=== PATIENT | male | born 1950 | race Caucasian/White ===

== ENCOUNTER 2016-09-10 16:25 | Emergency (ER) | payer BC ==
[2016-09-10] MEDS ORDERED: Albuterol/Ipratropium 3.0-0.5 MG/3 ML Neb Soln NEB ONE ×3 (16:41→17:18)
[2016-09-10] MEDS ORDERED: Doxycycline 100 MG Cap PO ONE (16:41)
[2016-09-10] MEDS ORDERED: methylPREDNISolone Sodium Succinate 125 MG/2 ML SDV IVPUSH ONE (16:41)
--- NOTE | 2016-09-10 17:21 | EDM.PDOC ---
ED HPI GENERAL MEDICAL PROBLEM - General Chief Complaint: Respiratory Problem Stated Complaint: SOB Time Seen by Provider: 09/10/16 16:39 Source of Information: Reports: Patient History Limitations: Reports: No Limitations - History of Present Illness INITIAL COMMENTS - FREE TEXT/NARRATIVE: The patient is a 66-year-old male with a chief complaint of cough and shortness of breath. The patient has a history of COPD. He is on oxygen at baseline but only at night. For the past couple of days he's had increased cough, sputum production, and shortness of breath. He's been using his albuterol nebulizer with no relief. Feels very short of breath and wheezy. No chest pain. No fever. No vomiting. No additional complaint. Not currently on steroids but states he's required frequent use of steroid medication this year. - Related Data Allergies Allergy/AdvReac Type Severity Reaction Status Date / Time No Known Allergies Allergy Verified 09/10/16 16:42 Home Meds: Home Meds Levalbuterol Tartrate [Xopenex HFA] 2 puff INH Q6H PRN 12/28/14 [History] Albuterol Sulfate 2.5 mg Q4HR PRN 09/10/16 [History] Doxycycline [Vibramycin] 100 mg PO BID #20 cap 09/10/16 [Rx] Roflumilast [Daliresp] 1 tab DAILY 09/10/16 [History] Stiolto Respimat Inhal [place] 2 puff DAILY 09/10/16 [History] predniSONE [Prednisone] 60 mg PO DAILY 5 Days 09/10/16 [Rx] Past Medical History Respiratory History: Reports: COPD Social & Family History - Tobacco Use Smoking Status *Q: Former Smoker Used Tobacco, but Quit: No - Recreational Drug Use Recreational Drug Use: No ED ROS GENERAL - Review of Systems Review Of Systems: See Below Constitutional: Reports: Malaise, Weakness, Fatigue. Denies: Fever HEENT: Reports: No Symptoms Respiratory: Reports: Shortness of Breath, Wheezing, Cough Cardiovascular: Reports: No Symptoms Endocrine: Reports: No Symptoms GI/Abdominal: Reports: No Symptoms Musculoskeletal: Reports: No Symptoms ED EXAM, GENERAL - Physical Exam Exam: See Below Exam Limited By: No Limitations General Appearance: Alert, Mild Distress Eye Exam: Bilateral Eye: Normal Inspection Ears: Normal External Exam Nose: Normal Inspection Throat/Mouth: Normal Inspection, Normal Voice, No Airway Compromise Head: Atraumatic, Normocephalic Neck: Normal Inspection, Supple, Non-Tender, Full Range of Motion Respiratory/Chest: Wheezing, Accessory Muscle Use, Prolonged Expiration, Other ( diffuse expiratory wheeze) Cardiovascular: Normal Peripheral Pulses, Regular Rate, Rhythm, No Edema GI/Abdominal: Soft, Non-Tender, No Distention. No: Rebound Back Exam: Normal Inspection Extremities: Normal Inspection Neurological: Alert, Oriented, Normal Cognition, No Motor/Sensory Deficits Psychiatric: Normal Affect, Normal Mood Skin Exam: Warm, Dry, Intact, Normal Color, No Rash Course - Vital Signs Last Recorded V/S: Last Vital Signs Temp 35.6 C 09/10/16 16:42 Pulse 98 09/10/16 18:50 Resp 19 09/10/16 18:50 BP 113/80 09/10/16 18:50 Pulse Ox 89 L 09/10/16 18:50 - Orders/Labs/Meds Orders: Active Orders 24 hr Category Date Time Status EKG 12 Lead [EKG Documentation Completion] [RC] STAT Care 09/10/16 16:41 Active RT Aerosol Therapy [RC] ASDIRECTED Care 09/10/16 16:41 Active Labs: Laboratory Tests 09/10/16 09/10/16 Range/Units 16:45 16:45 WBC 10.25 H (4.23-9.07) K/mm3 RBC 4.85 (4.63-6.08) M/mm3 Hgb 15.3 (13.7-17.5) gm/L Hct 45.1 (40.1-51.0) % MCV 93.0 H (79.0-92.2) fl MCH 31.5 (25.7-32.2) pg MCHC 33.9 (32.2-35.5) g/dl RDW Std Deviation 46.6 H (35.1-43.9) fL Plt Count 331 (163-337) K/mm3 MPV 9.8 (9.4-12.3) fl Neut % (Auto) 60.4 (34.0-67.9) % Lymph % (Auto) 21.7 L (21.8-53.1) % [place] % (Auto) 10.6 (5.3-12.2) % Eos % (Auto) 6.4 (0.8-7.0) Baso % (Auto) 0.6 (0.1-1.2) % Neut # (Auto) 6.19 H (1.78-5.38) K/mm3 Lymph # (Auto) 2.22 (1.32-3.57) K/mm3 [place] # (Auto) 1.09 H (0.30-0.82) K/mm3 Eos # (Auto) 0.66 H (0.04-0.54) K/mm3 Baso # (Auto) 0.06 (0.01-0.08) K/mm3 Sodium 141 (136-145) mEq/L Potassium 3.4 L (3.5-5.1) mEq/L Chloride 103 (98-107) mEq/L Carbon Dioxide 27 (21-32) mEq/L Anion Gap 14.4 (5-15) BUN 19 H (7-18) mg/dL Creatinine 1.1 (0.7-1.3) mg/dL Est Cr Clr Drug Dosing 76.67 mL/min Estimated GFR (MDRD) > 60 (>60) mL/min BUN/Creatinine Ratio 17.3 (14-18) Glucose 114 (80-115) mg/dL Calcium 9.2 (8.5-10.1) mg/dL Total Bilirubin 0.7 (0.2-1.0) mg/dL AST 23 (15-37) U/L ALT 33 (16-63) U/L Alkaline Phosphatase 107 (46-116) U/L Troponin I < 0.017 (0.00-0.056) ng/mL Total Protein 8.0 (6.4-8.2) g/dl Albumin 4.1 (3.4-5.0) g/dl Globulin 3.9 gm/dL Albumin/Globulin Ratio 1.1 (1-2) Meds: Medications Discontinued Medications Generic Name Dose Route Start Last Admin Trade Name Freq PRN Reason Stop Dose Admin Albuterol/Ipratropium 3 ml 09/10/16 16:41 09/10/16 16:48 Duoneb 3.0-0.5 Mg/3 Ml NEB 09/10/16 16:42 3 ml ONETIME ONE Administration Albuterol/Ipratropium 3 ml 09/10/16 16:41 09/10/16 16:49 Duoneb 3.0-0.5 Mg/3 Ml NEB 09/10/16 16:42 3 ml ONETIME ONE Administration Albuterol/Ipratropium 3 ml 09/10/16 17:18 09/10/16 17:26 Duoneb 3.0-0.5 Mg/3 Ml NEB 09/10/16 17:19 3 ml ONETIME ONE Administration Doxycycline Hyclate 100 mg 09/10/16 16:41 09/10/16 17:02 Vibramycin PO 09/10/16 16:42 100 mg ONETIME ONE Administration Methylprednisolone Sodium Succinate 125 mg 09/10/16 16:41 09/10/16 17:03 Solu-Medrol IVPUSH 09/10/16 16:42 125 mg ONETIME ONE Administration - Re-Assessments/Exams Free Text/Narrative Re-Assessment/Exam: 09/10/16 18:10 EKG shows a right bundle branch block, no significant ST abnormality. Chest x- ray shows mild hyperinflation, normal cardiac silhouette, no infiltrate or pneumothorax. Patient given [id number] nebs and states breathing is much improved. Also given steroid medication. Given doxycycline for COPD exacerbation with bronchitis. 09/10/16 18:32 Feels much better, no SOB, no wheezes, wants to go home. Advised him to use his oxygen continuously until he follows up with his primary doctor. His oxygen saturations here are in the 90s on 1 L nasal cannula. Discussed return precautions. 09/11/16 12:36 Departure - Departure Time of Disposition: 18:32 Disposition: Home, Self-Care 01 Clinical Impression: COPD exacerbation - Discharge Information Prescriptions: Doxycycline [Vibramycin] 100 mg PO BID #20 cap predniSONE [Prednisone] 60 mg PO DAILY 5 Days Instructions: Chronic Obstructive Pulmonary Disease Exacerbation, [id number] Referrals: Anamaria Seaman NP [Primary Care Provider] - Forms: ED Department Discharge - My Orders Last 24 Hours: My Active Orders 09/10/16 16:41 EKG 12 Lead [EKG Documentation Completion] [RC] STAT RT Aerosol Therapy [RC] ASDIRECTED - Assessment/Plan Last 24 Hours: My Active Orders 09/10/16 16:41 EKG 12 Lead [EKG Documentation Completion] [RC] STAT RT Aerosol Therapy [RC] ASDIRECTED
[2016-09-10 19:04] VITALS: BP 113/80
--- NOTE | 2016-09-11 07:16 | CR ---
Chest: Portable view of the chest was obtained. Comparison: Previous chest x-ray of 11/25/14. Heart size is normal. Mild tortuosity of the thoracic aorta is seen. Lungs are clear with no acute infiltrates. Lungs are hyperinflated compatible with emphysematous change. Bony structures are grossly intact. Impression: 1. Emphysematous change. Nothing acute is appreciated. No significant change is seen from prior study. Diagnostic code #2
== END 2016-09-10 18:55 | disposition home or self-care (01) ==
LOC: JD.ED 16:25
DX: J44.1 Chronic obstructive pulmonary disease with (acute) exacerbation (principal); Z87.891 Personal history of nicotine dependence; Z79.899 Other long term (current) drug therapy
CPT/HCPCS: 36415; 71010; 80053; 84484; 85025; 93005; 94640; 94664; 96374; 99285; A9270; J2930; 99284

== ENCOUNTER 2016-10-02 05:05 | Inpatient (IN) | payer BC ==
--- NOTE | 2016-10-02 05:08 | EDM.PDOC ---
ED HPI GENERAL MEDICAL PROBLEM - General Chief Complaint: Respiratory Problem Stated Complaint: [facility] Time Seen by Provider: 10/02/16 05:05 Source of Information: Reports: Patient, EMS, RN Notes Reviewed History Limitations: Reports: No Limitations - History of Present Illness INITIAL COMMENTS - FREE TEXT/NARRATIVE: The patient states that he woke around 01:00 this morning with shortness of breath and wheezing. He took 4 puffs of his albuterol inhaler, which did nothing. He then took 2 DuoNeb's, which also did nothing. He called EMS, who found his oxygen saturation to be 89% on room air. They gave him an albuterol neb en route, which increased his oxygen saturation to 96%, while on the neb. Here in the ED, his oxygen saturation is about 90% on room air. The patient has a history of COPD and wears supplemental oxygen 2 L per nasal cannula, only at night. He denies recent fever and cough. The patient's PCP is Anamaria Seaman. His [employer] Admin is Dr. Jackson. - Related Data Allergies Allergy/AdvReac Type Severity Reaction Status Date / Time No Known Allergies Allergy Verified 10/02/16 05:11 Home Meds: Home Meds Levalbuterol Tartrate [Xopenex HFA] 2 puff INH Q6H PRN 12/28/14 [History] Albuterol Sulfate 2.5 mg Q4HR PRN 09/10/16 [History] Doxycycline [Vibramycin] 100 mg PO BID #20 cap 09/10/16 [Rx] Roflumilast [Daliresp] 1 tab DAILY 09/10/16 [History] Stiolto Respimat Inhal [place] 2 puff DAILY 09/10/16 [History] Past Medical History Respiratory History: Reports: COPD Social & Family History - Tobacco Use Smoking Status *Q: Former Smoker Years of Tobacco use: 20 Packs/Tins Daily: 1.5 Month Tobacco Last Used: 2001 - Alcohol Use Alcohol Use History: No - Recreational Drug Use Recreational Drug Use: No - Living Situation & Occupation Living situation: Reports: , Alone 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) ED ROS GENERAL - Review of Systems Review Of Systems: See Below Constitutional: Reports: No Symptoms HEENT: Reports: No Symptoms Respiratory: Reports: No Symptoms Cardiovascular: Reports: No Symptoms Endocrine: Reports: No Symptoms GI/Abdominal: Reports: No Symptoms : Reports: No Symptoms Musculoskeletal: Reports: No Symptoms Skin: Reports: No Symptoms Neurological: Reports: No Symptoms Psychiatric: Reports: No Symptoms Hematologic/Lymphatic: Reports: No Symptoms Immunologic: Reports: No Symptoms ED EXAM, GENERAL - Physical Exam Exam: See Below Exam Limited By: No Limitations General Appearance: Alert, WD/WN, Mild Distress (appears dyspneic) Eye Exam: Bilateral Eye: Normal Inspection Ears: Normal External Exam, Hearing Grossly Normal Nose: Normal Inspection, No Blood Throat/Mouth: Normal Inspection, Normal Lips, Normal Voice, No Airway Compromise Head: Atraumatic, Normocephalic Neck: Normal Inspection, Full Range of Motion Respiratory/Chest: Normal Breath Sounds, No Accessory Muscle Use, Chest Non- Tender, Decreased Breath Sounds (mild), Wheezing (mild, scattered). No: Crackles, Rhonchi, Accessory Muscle Use, Prolonged Expiration Cardiovascular: Normal Peripheral Pulses, Regular Rate, Rhythm, No Gallop, No JVD, No Murmur, No Rub, Tachycardia Peripheral Pulses: 4+: Radial (L), Radial (R) GI/Abdominal: Normal Bowel Sounds, Soft, Non-Tender, No Organomegaly, No Distention, No Abnormal Bruit, No Mass (Male) Exam: Deferred Rectal (Males) Exam: Deferred Back Exam: Normal Inspection, Full Range of Motion, NT Extremities: Normal Inspection, Normal Range of Motion, No Pedal Edema, Normal Capillary Refill Neurological: Alert, Oriented, Normal Cognition, No Motor/Sensory Deficits Psychiatric: Normal Affect Skin Exam: Warm, Dry, Intact, Normal Color, No Rash Lymphatic: No Adenopathy EKG INTERPRETATION EKG Date: 10/02/16 Time: 05:16 Rhythm: Other (Sinus tachycardia) Rate (Beats/Min): 110 Flom: Normal P-Wave: Present QRS: RBBB ST-T: Normal QT: Normal Comparison: No Change (09/10/2016) Course - Vital Signs Last Recorded V/S: Last Vital Signs Temp 36.7 C 10/02/16 05:06 Pulse 100 10/02/16 08:13 Resp 29 H 10/02/16 08:13 BP 127/97 H 10/02/16 08:13 Pulse Ox 94 L 10/02/16 08:13 - Orders/Labs/Meds Orders: Active Orders 24 hr Category Date Time Status EKG Documentation Completion [RC] STAT Care 10/02/16 05:08 Active CULTURE BLOOD [BC] Stat Lab 10/02/16 05:40 Received CULTURE BLOOD [BC] Stat Lab 10/02/16 05:50 Received Blood Culture x2 Reflex Set [OM.PC] Stat Oth 10/02/16 05:08 Ordered Labs: Laboratory Tests 10/02/16 10/02/16 10/02/16 Range/Units 05:08 05:10 05:10 WBC 10.97 H (4.23-9.07) K/mm3 RBC 4.61 L (4.63-6.08) M/mm3 Hgb 14.7 (13.7-17.5) gm/L Hct 42.5 (40.1-51.0) % MCV 92.2 (79.0-92.2) fl MCH 31.9 (25.7-32.2) pg MCHC 34.6 (32.2-35.5) g/dl RDW Std Deviation 44.9 H (35.1-43.9) fL Plt Count 261 (163-337) K/mm3 MPV 9.7 (9.4-12.3) fl Neutrophils % (Manual) 84 H (40-60) % Band Neutrophils % 0 (0-10) % Lymphocytes % (Manual) 15 L (20-40) % Atypical Lymphs % 0 % Monocytes % (Manual) 1 L (2-10) % Eosinophils % (Manual) 0 L (0.8-7.0) % Basophils % (Manual) 0 L (0.2-1.2) Platelet Estimate Adequate RBC Morph Comment Normal PT 9.3 (8.0-13.0) SECONDS INR 0.86 APTT 27 (22-36) SECONDS D-Dimer, Quantitative 0.23 (0.19-0.59) mg/L Puncture Site Rt radial ABG pH 7.41 (7.35-7.45) ABG pCO2 41.9 (35.0-45.0) mmHg ABG pO2 59.0 L (80.0-100.0) mmHg ABG HCO3 25.7 (22.0-26.0) meq/L A-a Gradient 23 mmHg O2 Delivery Device Room air FiO2 0.00 L (21.00-100.00) % Sodium (136-145) mEq/L Potassium (3.5-5.1) mEq/L Chloride (98-107) mEq/L Carbon Dioxide (21-32) mEq/L Anion Gap (5-15) BUN (7-18) mg/dL Creatinine (0.7-1.3) mg/dL Est Cr Clr Drug Dosing Estimated GFR (MDRD) (>60) mL/min BUN/Creatinine Ratio (14-18) Glucose (80-115) mg/dL Lactic Acid (0.4-2.0) mmol/L Calcium (8.5-10.1) mg/dL Total Bilirubin (0.2-1.0) mg/dL AST (15-37) U/L ALT (16-63) U/L Alkaline Phosphatase (46-116) U/L Troponin I (0.00-0.056) ng/mL B-Natriuretic Peptide (0-100) pg/mL Total Protein (6.4-8.2) g/dl Albumin (3.4-5.0) g/dl Globulin gm/dL Albumin/Globulin Ratio (1-2) 10/02/16 10/02/16 10/02/16 Range/Units 05:10 05:10 05:40 WBC (4.23-9.07) K/mm3 RBC (4.63-6.08) M/mm3 Hgb (13.7-17.5) gm/L Hct (40.1-51.0) % MCV (79.0-92.2) fl MCH (25.7-32.2) pg MCHC (32.2-35.5) g/dl RDW Std Deviation (35.1-43.9) fL Plt Count (163-337) K/mm3 MPV (9.4-12.3) fl Neutrophils % (Manual) (40-60) % Band Neutrophils % (0-10) % Lymphocytes % (Manual) (20-40) % Atypical Lymphs % % Monocytes % (Manual) (2-10) % Eosinophils % (Manual) (0.8-7.0) % Basophils % (Manual) (0.2-1.2) Platelet Estimate RBC Morph Comment PT (8.0-13.0) SECONDS INR APTT (22-36) SECONDS D-Dimer, Quantitative (0.19-0.59) mg/L Puncture Site ABG pH (7.35-7.45) ABG pCO2 (35.0-45.0) mmHg ABG pO2 (80.0-100.0) mmHg ABG HCO3 (22.0-26.0) meq/L A-a Gradient mmHg O2 Delivery Device FiO2 (21.00-100.00) % Sodium 140 (136-145) mEq/L Potassium 3.6 (3.5-5.1) mEq/L Chloride 103 (98-107) mEq/L Carbon Dioxide 29 (21-32) mEq/L Anion Gap 11.6 (5-15) BUN 15 (7-18) mg/dL Creatinine 1.1 (0.7-1.3) mg/dL Est Cr Clr Drug Dosing TNP Estimated GFR (MDRD) > 60 (>60) mL/min BUN/Creatinine Ratio 13.6 L (14-18) Glucose 129 H (80-115) mg/dL Lactic Acid 1.5 (0.4-2.0) mmol/L Calcium 8.4 L (8.5-10.1) mg/dL Total Bilirubin 0.3 (0.2-1.0) mg/dL AST 19 (15-37) U/L ALT 34 (16-63) U/L Alkaline Phosphatase 89 (46-116) U/L Troponin I < 0.017 (0.00-0.056) ng/mL B-Natriuretic Peptide < 15 (0-100) pg/mL Total Protein 7.4 (6.4-8.2) g/dl Albumin 3.7 (3.4-5.0) g/dl Globulin 3.7 gm/dL Albumin/Globulin Ratio 1.0 (1-2) Meds: Medications Discontinued Medications Generic Name Dose Route Start Last Admin Trade Name Freq PRN Reason Stop Dose Admin Ibuprofen 600 mg 10/02/16 06:42 10/02/16 06:51 Motrin PO 10/02/16 06:43 600 mg ONETIME ONE Administration - Re-Assessments/Exams Free Text/Narrative Re-Assessment/Exam: 10/02/16 05:18 The etiology of the patient's symptoms is not entirely clear. At first blush, it appears that he is having a COPD exacerbation, however, on auscultation of his lungs, he has fairly good overall air movement, with only minimal wheezing. He has not been coughing. He did not improve despite 4 puffs of his albuterol inhaler and 2 DuoNeb treatments. Before giving him additional albuterol or beginning steroids, I will wait for lab results. 10/02/16 05:32 The patient's ABG demonstrates low PO2, but a normal acid-base status. 10/02/16 06:00 Two-view chest radiograph reviewed. Cardiac silhouette is within normal limits. No pulmonary vascular congestion. No pleural effusions. No focal infiltrate. No pneumothorax. Hyperinflation and bilateral diaphragmatic flattening noted, consistent with COPD. Formal read per the Radiologist pending. 10/02/16 07:57 Test results discussed with the patient. Today's workup is grossly unremarkable , and does not explain the cause of the patient's symptoms. While he complains of dyspnea, he is moving air fairly well, with minimal wheezing. His ABG does not show hypercapnia, his chest radiograph does not show an infiltrate, and his D-dimer is low. The patient reiterated that he had NO benefit whatsoever from the 4 albuterol MDI inhalations, 2 DuoNeb's, or albuterol neb that he received. All of these speak against a COPD exacerbation, therefore I am reluctant to give him more albuterol or start him on steroids. His oxygen saturation is hovering around 91% on room air, but he still appears to be fairly dyspneic. I'm reluctant to discharge him home, and he is agreeable to being admitted. 10/02/16 08:[address] Hall at 08:19. He accepts the patient for admission. Departure - Departure Time of Disposition: 08:24 Disposition: Admitted As Inpatient 68 Condition: Fair Clinical Impression: Acute dyspnea, Hypoxemia - Discharge Information - My Orders Last 24 Hours: My Active Orders 10/02/16 05:08 EKG Documentation Completion [RC] STAT Blood Culture x2 Reflex Set [OM.PC] Stat 10/02/16 05:40 CULTURE BLOOD [BC] Stat 10/02/16 05:50 CULTURE BLOOD [BC] Stat - Assessment/Plan Last 24 Hours: My Active Orders 10/02/16 05:08 EKG Documentation Completion [RC] STAT Blood Culture x2 Reflex Set [OM.PC] Stat 10/02/16 05:40 CULTURE BLOOD [BC] Stat 10/02/16 05:50 CULTURE BLOOD [BC] Stat
[2016-10-02] MEDS ORDERED: Ibuprofen 600 MG Tab PO ONE (06:42)
--- NOTE | 2016-10-02 07:39 | CR ---
Chest: Two views of the chest were obtained. Comparison: Previous chest x-ray of 09/10/16. Heart size is normal. Tortuous thoracic aorta is seen. Lungs are hyperinflated compatible with emphysematous change. Lung markings are mildly increased within the left base believed to be chronic. I do not see any acute infiltrates at this time. Bony structures are within normal limits for the patient's age. Impression: 1. Emphysematous change. Other incidental findings. Nothing acute is appreciated. Diagnostic code #2
[2016-10-02] MEDS ORDERED: Morphine 2 MG/ML Syringe IVPUSH ONE (09:21)
[2016-10-02] MEDS ORDERED: methylPREDNISolone Sodium Succinate 125 MG/2 ML SDV IVPUSH ONE (09:22)
[2016-10-02] MEDS ORDERED: Magnesium Sulfate/Water 2 GM in Premix Bag 1 BAG IV ONE (09:22)
[2016-10-02] MEDS ORDERED: Morphine 2 MG/ML Syringe IVPUSH PRN (10:53)
--- NOTE | 2016-10-02 11:03 | PCM.HP ---
H&P History of Present Illness - General Date of Service: 10/02/16 Admit Problem/Dx: Admission Diagnosis/Problem Admission Diagnosis/Problem Dyspnea Source of Information: Patient, Old Records, Provider, RN Notes Reviewed, Significant Other History Limitations: Reports: Respiratory Distress - History of Present Illness Initial Comments - Free Text/Narative: This is a 66-year-old white male with past medical history of advanced COPD who presents to the emergency department with complaints of worsening shortness of breath and wheezing. He chief of complaint woke him up at about 1:00 this morning. He took initial breathing treatment with albuterol and DuoNeb but without much relief. Patient called EMS for further help, he was found to be saturating at 89% on room air. His O2 sat improved to 96% after initial treatment with albuterol nebulizer. On presentation to the emergency department his O2 sat was about 90% on room air. Patient denies any other symptoms. His initial workup in the emergency department shows a CBC significant for WBC of 10.97, RBC of 4.61, and neutrophils of 84%. His ABG shows pH of 7.41, PCO2 of 41.9, PO2 of 59, and bicarbonate of 29.7 on room air. His chemistry is significant for glucose of 129 and calcium of 8.4. His troponin is less than 0.017 and BNP is less than 15. Chest x-ray shows hyperinflated lungs. Patient is being admitted for acute respiratory distress and COPD exacerbation. He is full code. - Related Data Allergies/Adverse Reactions: Allergies Allergy/AdvReac Type Severity Reaction Status Date / Time No Known Allergies Allergy Verified 10/02/16 14:24 Home Medications: Home Meds Levalbuterol Tartrate [Xopenex HFA] 2 puff INH Q6H PRN 12/28/14 [History] Albuterol Sulfate 2.5 mg Q4HR PRN 09/10/16 [History] Roflumilast [Daliresp] 1 tab DAILY 09/10/16 [History] Stiolto Respimat Inhal [place] 2 puff DAILY 09/10/16 [History] Past Medical History Respiratory History: Reports: COPD, SOB - Past Surgical History Respiratory Surgical History: Reports: None Social & Family History - Tobacco Use Smoking Status *Q: Former Smoker Years of Tobacco use: 20 Packs/Tins Daily: 1.5 Used Tobacco, but Quit: Yes Month Tobacco Last Used: QUIT 15 YRS AGO Second Hand Smoke Exposure: No - Caffeine Use Caffeine Use: Reports: Coffee, Soda - Recreational Drug Use Recreational Drug Use: No - Living Situation & Occupation Living situation: Reports: , Alone 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 Denies: Pleuritic Chest Pain Cardiovascular: Reports: Dyspnea on Exertion. Denies: Chest Pain, Palpitations Gastrointestinal: Denies: Abdominal Pain, Nausea, Vomiting Genitourinary: Reports: No Symptoms Musculoskeletal: Reports: No Symptoms Skin: Denies: Cyanosis Psychiatric: Denies: Depression Exam - Exam Exam: See Below - Vital Signs Vital Signs: Last Vital Signs Temp 36.9 C 10/02/16 10:18 Pulse 103 H 10/02/16 09:00 Resp 24 H 10/02/16 10:18 BP 133/98 H 10/02/16 10:18 Pulse Ox 94 L 10/02/16 10:18 Weight: 85.411 kg - Exam Quality Assessment: Supplemental Oxygen General: Alert, Oriented, Moderate Distress, Other (Retracting) HEENT: Conjunctiva Clear, EACs Clear, EOMI, Hearing Intact, Mucosa Moist & [place] , Nares Patent, Normal Nasal Septum, Posterior Pharynx Clear, Pupils Equal, Pupils Reactive, TMs Clear Neck: Supple, Trachea Midline Lungs: Clear to Auscultation, Normal Respiratory Effort, Decreased Breath Sounds. No: Wheezing Cardiovascular: Tachycardia GI/Abdominal Exam: Normal Bowel Sounds, Soft, Non-Tender, No Organomegaly, No Distention, No Abnormal Bruit, No Mass (Male) Exam: Deferred Rectal (Males) Exam: Deferred Back Exam: Normal Inspection, Decreased Range of Motion Extremities: Normal Inspection, Normal Range of Motion, Non-Tender, No Pedal Edema, Normal Capillary Refill, Pedal Edema Peripheral Pulses: 2+: Dorsalis Pedis (L), Dorsalis Pedis (R) Skin: Warm, Dry, Intact Neuro Extensive - Mental Status: Oriented x3, Normal Cognition, Memory Intact Neuro Extensive - Motor, Sensory, Reflexes: CN II-XII Intact (limited due to respiratory distress), Normal Gait Psychiatric: Alert, Normal Mood, Anxious. No: Suicidal Ideation, Withdrawal Symptoms - Patient Data Result Diagrams: 10/02/16 05:10 10/02/16 05:10 EKG INTERPRETATION EKG Date: 10/02/16 Time: 05:16 Rhythm: Other (Sinus Tachycardia) Rate (Beats/Min): 110 [place]: Normal P-Wave: Present QRS: RBBB ST-T: Normal QT: Normal Comparison: No Change *Q Meaningful Use (ADM) - VTE *Q VTE Criteria *Q: - Stroke *Q Stroke Criteria *Q: - AMI *Q AMI Criteria *Q: Problem List Initiated/Reviewed/Updated: Yes Orders Last 24hrs: Active Orders 24 hr Category Date Time Status Communication Order [RC] PRN Care 10/02/16 08:28 Active Regular Diet [DIET] Diet 10/02/16 Lunch Active Magnesium Sulfate/Water [Magnesium Sulfate 2 GM in Med 10/02/16 09:22 Active Water 50 ML] 2 gm Premix Bag 1 bag IV ONETIME Morphine Med 10/02/16 10:53 Active 2 mg IVPUSH Q4H PRN Medication Orders Magnesium Sulfate 2 gm/ Premix 50 mls @ 25 mls/hr IV ONETIME ONE Stop: 10/02/16 11:21 Last Admin: 10/02/16 09:35 Dose: 25 mls/hr Morphine Sulfate (Morphine) 2 mg IVPUSH Q4H PRN PRN Reason: Dyspnea Assessment/Plan Comment:: Assessment/Plan: Acute: Respiratory Distress - 2/2 Dyspnea and COPE Exacerbation - He was retracting when he go to the unit; labored breathing - RR was 36-41 w/ O2 sat 86-88% - BP of 143/111 mmHg with HRs of 104-111 - ABG with PO2 59 - Received no breathing treatment in ED but Motrin COPD Exacerbation - Advanced COPD - No longer smokes - Failed outpatient treatment: 4 puff albuterol, 2 dounebs and 1 albuterol treatment by EMS - IV Steroids, Scheduled and PRN Bronchodilators, O2 - IS Q2 awake - Decongestant/Expectorant - Sputum Cx/Sx Hypoxemia - 2/2 Above - ABG: PO2 59 and O2 sat at 86-88% on 2L NC - Supplemental O2 - Treat underlying cause above HTN - BP not controlled - Likely related to above - PRN Meds Plan: Admit to ICU with to respiratory distress Routine AM Labs Resume Home Medications PRN Medications PT/OT/RT consult SW/CM for d/c planning Additional orders as above Code status: 1
[2016-10-02] MEDS ORDERED: Metoprolol Tartrate 5 MG/5 ML SDV IVPUSH PRN (11:04)
[2016-10-02] MEDS ORDERED: hydrALAZINE 20 MG/ML SDV IVPUSH PRN (11:04)
[2016-10-02] MEDS ORDERED: Bisacodyl 5 MG Tab PO PRN (11:06)
[2016-10-02] MEDS ORDERED: LORazepam 2 MG/ML MDV IV PRN (11:06)
[2016-10-02] MEDS ORDERED: Acetaminophen 325 MG Tab PO PRN (11:06)
[2016-10-02] MEDS ORDERED: Acetaminophen/HYDROcodone 325-5 MG Tab PO PRN (11:06)
[2016-10-02] MEDS ORDERED: Promethazine 12.5 MG in Sodium Chloride 0.9% 50 ML IV PRN (11:06)
[2016-10-02] MEDS ORDERED: Polyethylene Glycol 3350 Powder 17 GM Packet PO PRN (11:06)
[2016-10-02] MEDS ORDERED: Ondansetron 4 MG/2 ML SDV IV PRN (11:06)
[2016-10-02] MEDS ORDERED: Docusate Sodium 100 MG Cap PO PRN (11:06)
[2016-10-02] MEDS: ROFLUMILAST 500 MG PO SCH (11:49)
[2016-10-02] MEDS: Stiolto Respimat Inhal Spray NEB SCH (11:49)
[2016-10-02] MEDS: Azithromycin 250 MG in Sodium Chloride 0.9% 250 ML IV SCH (12:14)
[2016-10-02] MEDS: Albuterol/Ipratropium 3.0-0.5 MG/3 ML Neb Soln NEB PRN ×2 (12:38→20:28)
[2016-10-02] MEDS: methylPREDNISolone Sodium Succinate 40 MG/1 ML SDV IVPUSH SCH ×2 (16:33→22:17)
[2016-10-02] MEDS: Magnesium Oxide 400 MG Tab PO SCH (20:14)
[2016-10-02] MEDS ORDERED: Temazepam 15 MG Cap PO PRN (21:00)
[2016-10-03] MEDS: Albuterol/Ipratropium 3.0-0.5 MG/3 ML Neb Soln NEB PRN ×2 (05:23→11:53)
[2016-10-03] MEDS: methylPREDNISolone Sodium Succinate 40 MG/1 ML SDV IVPUSH SCH ×3 (06:06→22:44)
[2016-10-03] MEDS: Magnesium Oxide 400 MG Tab PO SCH ×2 (08:03→21:01)
[2016-10-03] MEDS: Stiolto Respimat Inhal Spray NEB SCH ×2 (08:04→13:24)
[2016-10-03] MEDS: ROFLUMILAST 500 MG PO SCH ×2 (08:04→13:21)
--- NOTE | 2016-10-03 11:35 | PCM.PN ---
[id number] - Review of Systems General: Reports: No Symptoms HEENT: Reports: No Symptoms Pulmonary: Reports: No Symptoms Cardiovascular: Reports: No Symptoms Gastrointestinal: Reports: No Symptoms Genitourinary: Reports: No Symptoms Musculoskeletal: Reports: No Symptoms Skin: Reports: No Symptoms Neurological: Reports: No Symptoms Psychiatric: Reports: No Symptoms - Patient Data Vitals - most recent: Last Vital Signs Temp 36.5 C 10/03/16 08:53 Pulse 77 10/03/16 04:00 Resp 17 10/03/16 08:53 BP 128/96 H 10/03/16 08:53 Pulse Ox 93 L 10/03/16 11:06 Weight - most recent: 85.411 kg I&O - last 24 hours: Intake & Output 10/02/16 10/03/16 10/03/16 22:59 06:59 14:59 Intake Total 720 180 Output Total 390 Balance 330 180 Lab Results last 24 hrs: Laboratory Results - last 24 hr 10/03/16 10/03/16 Range/Units 06:20 06:20 WBC 12.79 H (4.23-9.07) K/mm3 RBC 4.37 L (4.63-6.08) M/mm3 Hgb 14.0 (13.7-17.5) gm/L Hct 40.5 (40.1-51.0) % MCV 92.7 H (79.0-92.2) fl MCH 32.0 (25.7-32.2) pg MCHC 34.6 (32.2-35.5) g/dl RDW Std Deviation 44.2 H (35.1-43.9) fL Plt Count 272 (163-337) K/mm3 MPV 9.8 (9.4-12.3) fl Neut % (Auto) 89.3 H (34.0-67.9) % Lymph % (Auto) 5.7 L (21.8-53.1) % [place] % (Auto) 4.8 L (5.3-12.2) % Eos % (Auto) 0 L (0.8-7.0) Baso % (Auto) 0.0 L (0.1-1.2) % Neut # (Auto) 11.42 H (1.78-5.38) K/mm3 Lymph # (Auto) 0.73 L (1.32-3.57) K/mm3 [place] # (Auto) 0.62 (0.30-0.82) K/mm3 Eos # (Auto) 0.00 L (0.04-0.54) K/mm3 Baso # (Auto) 0.00 L (0.01-0.08) K/mm3 Manual Slide Review Abnormal smear Sodium 140 (136-145) mEq/L Potassium 3.7 (3.5-5.1) mEq/L Chloride 104 (98-107) mEq/L Carbon Dioxide 29 (21-32) mEq/L Anion Gap 10.7 (5-15) BUN 15 (7-18) mg/dL Creatinine 0.9 (0.7-1.3) mg/dL Est Cr Clr Drug Dosing 93.71 mL/min Estimated GFR (MDRD) > 60 (>60) mL/min BUN/Creatinine Ratio 16.7 (14-18) Glucose 144 H (80-115) mg/dL Calcium 8.8 (8.5-10.1) mg/dL Magnesium 2.1 (1.8-2.4) mg/dl C-Reactive Protein < 0.2 (<1.0) mg/dL Med Orders - Current: Current Medications Acetaminophen (Tylenol) 650 mg PO Q4H PRN PRN Reason: Pain (Mild 1-3)/fever Hydrocodone Bitart/Acetaminophen ([place] 325-5 Mg) 1 tab PO Q4H PRN PRN Reason: Pain (moderate 4-6) Last Admin: 10/02/16 20:13 Dose: 1 tab Albuterol/Ipratropium (Duoneb 3.0-0.5 Mg/3 Ml) 3 ml NEB Q4H PRN PRN Reason: Shortness Of Breath/wheezing Last Admin: 10/03/16 05:23 Dose: 3 ml Bisacodyl (Dulcolax) 5 mg PO DAILY PRN PRN Reason: Constipation Docusate Sodium (Colace) 100 mg PO BID PRN PRN Reason: Constipation Enoxaparin Sodium (Lovenox) 40 mg SUBCUT DAILY SUE Hydralazine HCl (Apresoline) 20 mg IVPUSH Q4H PRN PRN Reason: Hypertension Azithromycin 250 mg/ Sodium (Chloride) 250 mls @ 250 mls/hr IV Q24H [facility] Last Admin: 10/02/16 12:14 Dose: 250 mls/hr Promethazine HCl 12.5 mg/ (Sodium Chloride) 50.5 mls @ 100 mls/hr IV Q6H PRN PRN Reason: Nausea/Vomiting Lorazepam (Ativan) 1 mg IV Q6H PRN PRN Reason: Anxiety Magnesium Oxide (Magnesium Oxide) 400 mg PO BID [facility] Last Admin: 10/03/16 08:03 Dose: 400 mg Magnesium Sulfate (Pharmacy To Dose - Magnesium Replacement) 0 dose .XX ASDIRECTED PRN PRN Reason: RX TO MONITOR MAG LEVELS Methylprednisolone Sodium Succinate (Solu-Medrol) 40 mg IVPUSH Q8H [facility] Last Admin: 10/03/16 06:06 Dose: 40 mg Metoprolol Tartrate (Lopressor) 5 mg IVPUSH Q4H PRN PRN Reason: Tachycardia Morphine Sulfate (Morphine) 2 mg IVPUSH Q4H PRN PRN Reason: Dyspnea Ondansetron HCl (Zofran) 4 mg IV Q6H PRN PRN Reason: Nausea/Vomiting Xopenex Hfa Inhaler 0 each INH Q6H PRN PRN Reason: Shortness of Breath Roflumilast 500 Mg 0 each PO DAILY [facility] Last Admin: 10/03/16 08:04 Dose: Not Given Stiolto Respimat (Inhal [place]) 0 each NEB DAILY [facility] Last Admin: 10/03/16 08:04 Dose: Not Given Polyethylene Glycol (Miralax) 17 gm PO DAILY PRN PRN Reason: Constipation Potassium Chloride (Pharmacy To Dose - Potassium Replacement) 0 dose .XX ASDIRECTED PRN PRN Reason: RX TO MONITOR K LEVELS Senna/Docusate Sodium (Senna Plus) 1 tab PO BID PRN PRN Reason: Constipation Temazepam (Restoril) 15 mg PO BEDTIME PRN PRN Reason: Sleep Discontinued Medications Magnesium Sulfate 2 gm/ Premix 50 mls @ 25 mls/hr IV ONETIME ONE Stop: 10/02/16 11:21 Last Admin: 10/02/16 09:35 Dose: 25 mls/hr Ibuprofen (Motrin) 600 mg PO ONETIME ONE Stop: 10/02/16 06:43 Last Admin: 10/02/16 06:51 Dose: 600 mg Methylprednisolone Sodium Succinate (Solu-Medrol) 125 mg IVPUSH ONETIME ONE Stop: 10/02/16 09:23 Last Admin: 10/02/16 09:31 Dose: 125 mg Morphine Sulfate (Morphine) 2 mg IVPUSH ONETIME ONE Stop: 10/02/16 09:22 Last Admin: 10/02/16 09:29 Dose: 2 mg - Exam Quality Assessment: DVT prophylaxis General: alert, oriented, cooperative, no acute distress HEENT: Pupils equal, Pupils reactive, EOMI, Mucous membr. moist/pink Neck: supple, trachea midline, no JVD Lungs: Normal Respiratory Effort Cardiovascular: Regular Rate, Regular Rhythm GI/Abdominal Exam: Normal Bowel Sounds, Soft, Non-Tender, No Organomegaly (Male) Exam: Deferred Back Exam: Normal Inspection Extremities: Normal Inspection Skin: warm Neurological: no new focal deficit, normal gait, normal speech Psy/Mental Status: alert, normal affect, normal mood - Problem List Review Problem List Initiated/Reviewed/Updated: Yes - My Orders Last 24 Hours: My Active Orders 10/03/16 09:50 Antiembolic Devices [RC] PER UNIT ROUTINE SHY Hose [Antiembolic Hose] [OM.PC] Routine 10/04/16 09:00 Enoxaparin [Lovenox] 40 mg SUBCUT DAILY - Plan Plan:: Assessment/Plan: Acute: Respiratory Distress - 2/2 Dyspnea and COPE Exacerbation - He was retracting when he arrived; labored breathing was noted. - RR was 36-41 w/ O2 sat 86-88% - BP of 143/111 mmHg with HRs of 104-111 - ABG with PO2 59 - Received no breathing treatment in ED but Motrin COPD Exacerbation - Advanced COPD - No longer smokes - Failed outpatient treatment: 4 puff albuterol, 2 dounebs and 1 albuterol treatment by EMS - IV Steroids, Scheduled and PRN Bronchodilators, O2 - IS Q2 awake - Decongestant/Expectorant - Sputum Cx/Sx Hypoxemia - 2/2 Above - ABG: PO2 59 and O2 sat at 86-88% on 2L NC - Supplemental O2 - Treat underlying cause above HTN - BP not controlled - Likely related to above - PRN Meds Plan: Admit to ICU with to respiratory distress-->MS telemetry, medically stable Routine AM Labs Resume Home Medications PRN Medications PT/OT/RT consult SW/CM for d/c planning Additional orders as above Code status: 1 LOS<96 hours expected
[2016-10-03] MEDS: Azithromycin 250 MG in Sodium Chloride 0.9% 250 ML IV SCH (13:11)
[2016-10-03] MEDS: Levalbuterol HCl 1.25 MG/3 ML Neb NEB PRN (17:29)
[2016-10-04] MEDS: methylPREDNISolone Sodium Succinate 40 MG/1 ML SDV IVPUSH SCH (06:26)
[2016-10-04] MEDS: Levalbuterol HCl 1.25 MG/3 ML Neb NEB PRN (08:09)
[2016-10-04] MEDS: Stiolto Respimat Inhal Spray NEB SCH (08:09)
[2016-10-04] MEDS: ROFLUMILAST 500 MG PO SCH (08:25)
[2016-10-04] MEDS: Magnesium Oxide 400 MG Tab PO SCH (08:25)
[2016-10-04 08:45] VITALS: BP 126/89
[2016-10-04] MEDS ORDERED: Enoxaparin 40 MG/0.4 ML Syringe SUBCUT SCH (09:00)
--- NOTE | 2016-10-04 10:30 | PCM.DCSUM1 ---
Discharge Summary - Hospital Course Free Text/Narrative:: 66 year old male with COPD exacerbation and LLL infiltrate presented as respiratory distress on arrival to Med Surg floor and was promptly transferred to the ICU. He required O2, IV antibiotics as well as steroids. He was discharged to home without restriction at the time of DC on a steroid taper and oral antibiotic. Primary Dx Respiratory Distress Hypoxia LLL PNA COPD Exacerbation Activity As tolerated Meds Prednisone taper 40 mg over 12 days Zithromax, Z pack Diet Resume usual diet Follow up PCP 1-2 weeks Restrictions May return to work without restrictions, 10/06/16 - Discharge Data Discharge Date: 10/04/16 Discharge Disposition: Home, Self-Care 01 Condition: Good - Patient Summary/Data Consults: Consultations 10/02/16 11:08 Consult to Case Management [CONS] Routine Consult to Mellowing Machine Operator [CONS] Routine Consult to Spiritual Care [CONS] Routine OT Evaluation and Treatment [CONS] Routine PT Evaluation and Treatment [CONS] Routine Respiratory Care Assess and Treatment [CONS] Routine - Discharge Plan Prescriptions/Med Rec: Prednisone [IJD: predniSONE] 40 mg PO WITHBREAKFAST #22 tablet Home Medications: Home Meds Levalbuterol Tartrate [Xopenex HFA] 2 puff INH Q6H PRN 12/28/14 [History] Albuterol Sulfate 2.5 mg Q4HR PRN 09/10/16 [History] Roflumilast [Daliresp] 1 tab DAILY 09/10/16 [History] Stiolto Respimat Inhal [place] 2 puff DAILY 09/10/16 [History] Prednisone [IJD: predniSONE] 40 mg PO WITHBREAKFAST #22 tablet 10/04/16 [Rx] - Patient Data Vitals - Most Recent: Last Vital Signs Temp 36.4 C 10/04/16 08:44 Pulse 100 10/04/16 08:44 Resp 19 10/04/16 08:44 BP 126/89 10/04/16 08:44 Pulse Ox 95 10/04/16 08:44 Weight - Most Recent: 85.411 kg I&O - Last 24 hours: Intake & Output 10/03/16 10/04/16 10/04/16 22:59 06:59 14:59 Intake Total 950 600 Output Total 700 850 Balance 250 -250 Lab Results - Last 24 hrs: Laboratory Results - last 24 hr 10/03/16 10/04/16 10/04/16 Range/Units 16:00 06:07 06:07 WBC 13.99 H (4.23-9.07) K/mm3 RBC 4.19 L (4.63-6.08) M/mm3 Hgb 13.2 L (13.7-17.5) gm/L Hct 39.2 L (40.1-51.0) % MCV 93.6 H (79.0-92.2) fl MCH 31.5 (25.7-32.2) pg MCHC 33.7 (32.2-35.5) g/dl RDW Std Deviation 44.7 H (35.1-43.9) fL Plt Count 251 (163-337) K/mm3 MPV 9.7 (9.4-12.3) fl Neut % (Auto) 91.1 H (34.0-67.9) % Lymph % (Auto) 4.9 L (21.8-53.1) % [place] % (Auto) 3.7 L (5.3-12.2) % Eos % (Auto) 0 L (0.8-7.0) Baso % (Auto) 0.1 (0.1-1.2) % Neut # (Auto) 12.74 H (1.78-5.38) K/mm3 Lymph # (Auto) 0.69 L (1.32-3.57) K/mm3 [place] # (Auto) 0.52 (0.30-0.82) K/mm3 Eos # (Auto) 0.00 L (0.04-0.54) K/mm3 Baso # (Auto) 0.01 (0.01-0.08) K/mm3 Manual Slide Review Abnormal smear Sodium 141 (136-145) mEq/L Potassium 4.2 (3.5-5.1) mEq/L Chloride 106 (98-107) mEq/L Carbon Dioxide 25 (21-32) mEq/L Anion Gap 14.2 (5-15) BUN 22 H (7-18) mg/dL Creatinine 0.9 (0.7-1.3) mg/dL Est Cr Clr Drug Dosing 93.71 mL/min Estimated GFR (MDRD) > 60 (>60) mL/min BUN/Creatinine Ratio 24.4 H (14-18) Glucose 131 H (80-115) mg/dL Calcium 8.3 L (8.5-10.1) mg/dL Magnesium 2.1 (1.8-2.4) mg/dl Troponin I < 0.017 (0.00-0.056) ng/mL C-Reactive Protein < 0.2 (<1.0) mg/dL Mycoplasma pneumon IgM Negative (NEGATIVE) Med Orders - Current: Current Medications Acetaminophen (Tylenol) 650 mg PO Q4H PRN PRN Reason: Pain (Mild 1-3)/fever Hydrocodone Bitart/Acetaminophen ([place] 325-5 Mg) 1 tab PO Q4H PRN PRN Reason: Pain (moderate 4-6) Last Admin: 10/02/16 20:13 Dose: 1 tab Bisacodyl (Dulcolax) 5 mg PO DAILY PRN PRN Reason: Constipation Docusate Sodium (Colace) 100 mg PO BID PRN PRN Reason: Constipation Enoxaparin Sodium (Lovenox) 40 mg SUBCUT DAILY [facility] Last Admin: 10/04/16 09:39 Dose: Not Given Hydralazine HCl (Apresoline) 20 mg IVPUSH Q4H PRN PRN Reason: Hypertension Azithromycin 250 mg/ Sodium (Chloride) 250 mls @ 250 mls/hr IV Q24H [facility] Last Admin: 10/03/16 13:11 Dose: 250 mls/hr Promethazine HCl 12.5 mg/ (Sodium Chloride) 50.5 mls @ 100 mls/hr IV Q6H PRN PRN Reason: Nausea/Vomiting Levalbuterol HCl (Xopenex) 1.25 mg NEB Q6HRRT PRN PRN Reason: for sob/wheezing Last Admin: 10/04/16 08:09 Dose: 1.25 mg Lorazepam (Ativan) 1 mg IV Q6H PRN PRN Reason: Anxiety Magnesium Oxide (Magnesium Oxide) 400 mg PO BID [facility] Last Admin: 10/04/16 08:25 Dose: 400 mg Methylprednisolone Sodium Succinate (Solu-Medrol) 40 mg IVPUSH Q8H [facility] Last Admin: 10/04/16 06:26 Dose: 40 mg Metoprolol Tartrate (Lopressor) 5 mg IVPUSH Q4H PRN PRN Reason: Tachycardia Morphine Sulfate (Morphine) 2 mg IVPUSH Q4H PRN PRN Reason: Dyspnea Ondansetron HCl (Zofran) 4 mg IV Q6H PRN PRN Reason: Nausea/Vomiting Xopenex Hfa Inhaler 0 each INH Q6H PRN PRN Reason: Shortness of Breath Roflumilast 500 Mg 0 each PO DAILY [facility] Last Admin: 10/04/16 08:25 Dose: 1 each Stiolto Respimat (Inhal [place]) 0 each NEB DAILY [facility] Last Admin: 10/04/16 08:09 Dose: 2 each Polyethylene Glycol (Miralax) 17 gm PO DAILY PRN PRN Reason: Constipation Prednisone (Prednisone) 40 mg PO WITHBREAKFAST [facility] Senna/Docusate Sodium (Senna Plus) 1 tab PO BID PRN PRN Reason: Constipation Temazepam (Restoril) 15 mg PO BEDTIME PRN PRN Reason: Sleep Last Admin: 10/03/16 21:01 Dose: 15 mg Discontinued Medications Albuterol/Ipratropium (Duoneb 3.0-0.5 Mg/3 Ml) 3 ml NEB Q4H PRN PRN Reason: Shortness Of Breath/wheezing Last Admin: 10/03/16 11:53 Dose: 3 ml Magnesium Sulfate 2 gm/ Premix 50 mls @ 25 mls/hr IV ONETIME ONE Stop: 10/02/16 11:21 Last Admin: 10/02/16 09:35 Dose: 25 mls/hr Ibuprofen (Motrin) 600 mg PO ONETIME ONE Stop: 10/02/16 06:43 Last Admin: 10/02/16 06:51 Dose: 600 mg Magnesium Sulfate (Pharmacy To Dose - Magnesium Replacement) 0 dose .XX ASDIRECTED PRN PRN Reason: RX TO MONITOR MAG LEVELS Methylprednisolone Sodium Succinate (Solu-Medrol) 125 mg IVPUSH ONETIME ONE Stop: 10/02/16 09:23 Last Admin: 10/02/16 09:31 Dose: 125 mg Morphine Sulfate (Morphine) 2 mg IVPUSH ONETIME ONE Stop: 10/02/16 09:22 Last Admin: 10/02/16 09:29 Dose: 2 mg Potassium Chloride (Pharmacy To Dose - Potassium Replacement) 0 dose .XX ASDIRECTED PRN PRN Reason: RX TO MONITOR K LEVELS *Q Meaningful Use (DIS) - VTE *Q VTE Criteria *Q: - Stroke *Q Stroke Criteria *Q: - AMI *Q AMI Criteria *Q:
--- NOTE | 2016-10-04 11:49 | CR ---
Chest: Two views of the chest were obtained. Comparison: Previous chest x-ray of 10/02/16. Emphysematous changes seen. Minimal density within the left lung base most likely due to atelectasis. Lungs otherwise are clear. Bony structures are grossly intact. Impression: 1. Nothing acute is appreciated. No significant change is seen from previous study. Diagnostic code #2 I agree with preliminary report issued by [facility] ([facility] report finalized on 10/04/16, 8:46 AM Central Time)
[2016-10-05] MEDS ORDERED: predniSONE 20 MG Tab PO SCH (07:00)
== END 2016-10-04 10:22 | disposition home or self-care (01) | DRG 140 ==
LOC: JD.ED 05:05 → UNDOADMIN 08:25 → JD.ICU 08:25
PROVIDERS: ADMIT Internal Medicine; ATTEND Internal Medicine
DX: J44.1 Chronic obstructive pulmonary disease with (acute) exacerbation (principal); R06.09 Other forms of dyspnea; R09.02 Hypoxemia; Z99.81 Dependence on supplemental oxygen; I10 Essential (primary) hypertension; Z79.899 Other long term (current) drug therapy; Z87.891 Personal history of nicotine dependence
CPT/HCPCS: 36415; 36600; 71010; 71010-26; 71020; 71020-26; 80048; 80053; 82803; 83605; 83735; 83880; 84484; 85025; 85379; 85610; 85730; 86140; 86738; 87040; 87899; 93005; 94640; 94640-76; 94664; 97162-GP; 97165-GO; 99284; 99285-25; A9270-GY; J0456; J2270; J2920; J2930; J3475; J7050

== ENCOUNTER 2017-05-23 00:53 | Emergency (ER) | payer BC ==
[2017-05-23] MEDS ORDERED: Terbutaline 1 MG/ML SDV ONE (01:05)
[2017-05-23] MEDS ORDERED: methylPREDNISolone Sodium Succinate 125 MG/2 ML SDV ONE (01:08)
[2017-05-23] MEDS ORDERED: Albuterol/Ipratropium 3.0-0.5 MG/3 ML Neb Soln ONE ×2 (01:11→01:21)
[2017-05-23] MEDS ORDERED: Terbutaline 1 MG/ML SDV SUBCUT ONE (01:13)
[2017-05-23] MEDS ORDERED: methylPREDNISolone Sodium Succinate 125 MG/2 ML SDV IVPUSH ONE (01:13)
--- NOTE | 2017-05-23 01:15 | EDM.PDOC ---
ED HPI GENERAL MEDICAL PROBLEM - General Chief Complaint: Respiratory Problem Stated Complaint: [facility] Time Seen by Provider: 05/23/17 00:57 Source of Information: Reports: Patient, Family History Limitations: Reports: Respiratory Distress - History of Present Illness INITIAL COMMENTS - FREE TEXT/NARRATIVE: This is a 66-year-old male. He has a history of COPD and uses oxygen at night time. His states he developed a cold on Thursday and it is progressively gotten worse with coughing congestion and shortness of breath. Around 6 PM last night he took a turn for the worse with increased difficulty in breathing and tightness in his chest and increasing struggling to breathe. He attempted to wait until Thursday to see his family doctor but due to his respiratory distress his called an ambulance and they brought him to the ER. His last albuterol treatment was around midnight. When he comes in he is in respiratory distress sitting upright in a tripod position. He has very little air movement noted any using his accessory muscles and his upper chest to try to breathe. He is not able to give much of a history due to his respiratory distress but his is able to give an adequate history. has not noted any fever or chills. He's had no significant nausea vomiting or diarrhea. Patient stopped smoking about 15 years ago. He is a full code. - Related Data Allergies Allergy/AdvReac Type Severity Reaction Status Date / Time No Known Allergies Allergy Verified 05/23/17 01:10 Home Meds: Home Meds Levalbuterol Tartrate [Xopenex HFA] 2 puff INH Q6H PRN 12/28/14 [History] Albuterol Sulfate 2.5 mg Q4HR PRN 09/10/16 [History] Roflumilast [Daliresp] 1 tab DAILY 09/10/16 [History] Stiolto Respimat Inhal Paxton 2 puff DAILY 09/10/16 [History] ALPRAZolam [Xanax] 0.25 mg PO QID PRN 05/23/17 [History] Aspirin [Halfprin] 81 mg PO DAILY 05/23/17 [History] Prednisone [IJD: predniSONE] 40 mg PO ASDIRECTED PRN 05/23/17 [History] Past Medical History Respiratory History: Reports: COPD, SOB - Past Surgical History Respiratory Surgical History: Reports: None Social & Family History - Tobacco Use Smoking Status *Q: Former Smoker Years of Tobacco use: 20 Packs/Tins Daily: 1.5 Used Tobacco, but Quit: Yes Month Tobacco Last Used: QUIT 15 YRS AGO Second Hand Smoke Exposure: No - Caffeine Use Caffeine Use: Reports: Coffee, Soda - Recreational Drug Use Recreational Drug Use: No - Living Situation & Occupation Living situation: Reports: , Alone 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[employer]) ED ROS GENERAL - Review of Systems Review Of Systems: Unable To Obtain (I obtained the review of systems from the not the patient and the review of systems is limited) Constitutional: Denies: Fever, Chills HEENT: Reports: Rhinitis Respiratory: Reports: Shortness of Breath, Wheezing, Cough Cardiovascular: Denies: Chest Pain GI/Abdominal: Denies: Diarrhea, Nausea, Vomiting Neurological: Reports: No Symptoms Psychiatric: Reports: Anxiety ED EXAM, GENERAL - Physical Exam Exam: See Below Exam Limited By: Other (He is in severe respiratory distress) General Appearance: Alert, Anxious, Severe Distress, Other (Patient is rather diaphoretic) Ears: Normal External Exam Nose: Other (Not able to see his nose or mouth at this time because he is on oxygen and now he is on BiPAP) Throat/Mouth: Other (Patient is on BiPAP) Head: Normocephalic Neck: Other (Patient's holding his neck up in the tripod position and doesn't want to change Position) Respiratory/Chest: Respiratory Distress, Decreased Breath Sounds, Wheezing, Accessory Muscle Use, Retractions, Prolonged Expiration, Other (Do not hear any breath sounds in the upper davidson in the lower davidson he has lots of wheezing on the left side and dullness on the right side, he has a markedly prolonged expiratory phase) Cardiovascular: Regular Rate, Rhythm, Tachycardia GI/Abdominal: Other (Patient shakes his head no to abdominal pain) Back Exam: Normal Inspection Extremities: Normal Inspection, Normal Range of Motion Neurological: Alert, Other ( knows his and he knows he is in the ER) Psychiatric: Anxious Skin Exam: Diaphoretic Course - Vital Signs Last Recorded V/S: Last Vital Signs Temp 98.5 F 05/23/17 01:22 Pulse 102 H 05/23/17 02:55 Resp 20 05/23/17 02:55 BP 142/114 H 05/23/17 01:22 Pulse Ox 96 05/23/17 02:55 - Orders/Labs/Meds Orders: Active Orders 24 hr Category Date Time Status BIPAP [RT BiPAP/CPAP] [RC] ASDIRECTED Care 05/23/17 01:00 Active RT Aerosol Therapy [RC] ASDIRECTED Care 05/23/17 01:51 Active RT Aerosol Therapy [RC] ASDIRECTED Care 05/23/17 01:52 Active RT Aerosol Therapy [RC] ASDIRECTED Care 05/23/17 01:52 Active CXR [Chest 1V Frontal] [CR] Stat Exams 05/23/17 01:07 Taken CULTURE BLOOD [BC] Stat Lab 05/23/17 01:30 Received CULTURE BLOOD [BC] Stat Lab 05/23/17 01:38 Received Azithromycin [Zithromax] 500 mg Med 05/23/17 03:36 Active Sodium Chloride 0.9% [Normal Saline] 250 ml IV ONETIME Blood Culture x2 Reflex Set [OM.PC] Stat Oth 05/23/17 01:08 Ordered Medication Orders Azithromycin 500 mg/ Sodium (Chloride) 250 mls @ 250 mls/hr IV ONETIME ONE Stop: 05/23/17 04:35 Last Admin: 05/23/17 03:56 Dose: 250 mls/hr Labs: Laboratory Tests 05/23/17 05/23/17 05/23/17 Range/Units 00:55 00:55 01:30 WBC 10.71 H (4.23-9.07) K/mm3 RBC 4.66 (4.63-6.08) M/mm3 Hgb 14.3 (13.7-17.5) gm/L Hct 43.4 (40.1-51.0) % MCV 93.1 H (79.0-92.2) fl MCH 30.7 (25.7-32.2) pg MCHC 32.9 (32.2-35.5) g/dl RDW Std Deviation 45.5 H (35.1-43.9) fL Plt Count 334 (163-337) K/mm3 MPV 9.4 (9.4-12.3) fl Neut % (Auto) 60.3 (34.0-67.9) % Lymph % (Auto) 23.4 (21.8-53.1) % Noble % (Auto) 11.0 (5.3-12.2) % Eos % (Auto) 4.8 (0.8-7.0) Baso % (Auto) 0.3 (0.1-1.2) % Neut # (Auto) 6.46 H (1.78-5.38) K/mm3 Lymph # (Auto) 2.51 (1.32-3.57) K/mm3 Noble # (Auto) 1.18 H (0.30-0.82) K/mm3 Eos # (Auto) 0.51 (0.04-0.54) K/mm3 Baso # (Auto) 0.03 (0.01-0.08) K/mm3 Manual Slide Review Abnormal smear Sodium 141 (136-145) mEq/L Potassium 3.8 (3.5-5.1) mEq/L Chloride 104 (98-107) mEq/L Carbon Dioxide 29 (21-32) mEq/L Anion Gap 11.8 (5-15) BUN 16 (7-18) mg/dL Creatinine 1.2 (0.7-1.3) mg/dL Est Cr Clr Drug Dosing TNP Estimated GFR (MDRD) > 60 (>60) mL/min BUN/Creatinine Ratio 13.3 L (14-18) Glucose 131 H (80-115) mg/dL Lactic Acid 0.9 (0.4-2.0) mmol/L Calcium 8.5 (8.5-10.1) mg/dL Total Bilirubin 0.2 (0.2-1.0) mg/dL AST 20 (15-37) U/L ALT 30 (16-63) U/L Alkaline Phosphatase 117 H (46-116) U/L Total Protein 7.6 (6.4-8.2) g/dl Albumin 3.8 (3.4-5.0) g/dl Globulin 3.8 gm/dL Albumin/Globulin Ratio 1.0 (1-2) Meds: Medications Generic Name Dose Route Start Last Admin Trade Name Freq PRN Reason Stop Dose Admin Azithromycin 500 mg/ Sodium 250 mls @ 250 mls/hr 05/23/17 03:36 05/23/17 03: 56 Chloride IV 05/23/17 04:35 250 mls/hr ONETIME ONE Administration Discontinued Medications Generic Name Dose Route Start Last Admin Trade Name Freq PRN Reason Stop Dose Admin Albuterol/Ipratropium Confirm 05/23/17 01:11 05/23/17 01:53 Duoneb 3.0-0.5 Mg/3 Ml Administered 05/23/17 01:12 Not Given Dose 3 ml .ROUTE .STK-MED ONE Albuterol/Ipratropium Confirm 05/23/17 01:21 05/23/17 01:53 Duoneb 3.0-0.5 Mg/3 Ml Administered 05/23/17 01:22 Not Given Dose 6 ml .ROUTE .STK-MED ONE Albuterol/Ipratropium 3 ml 05/23/17 01:51 05/23/17 01:07 Duoneb 3.0-0.5 Mg/3 Ml NEB 05/23/17 01:52 3 ml ONETIME ONE Administration Albuterol/Ipratropium 3 ml 05/23/17 01:52 05/23/17 01:25 Duoneb 3.0-0.5 Mg/3 Ml NEB 05/23/17 01:53 3 ml ONETIME ONE Administration Albuterol/Ipratropium 3 ml 05/23/17 01:52 05/23/17 01:17 Duoneb 3.0-0.5 Mg/3 Ml NEB 05/23/17 01:53 3 ml ONETIME ONE Administration Ceftriaxone Sodium 1 gm 05/23/17 03:36 Rocephin IM 05/23/17 03:37 ONETIME ONE Ceftriaxone Sodium 1 gm/ 100 mls @ 200 mls/hr 05/23/17 03:57 05/23/17 04:00 Sodium Chloride IV 05/23/17 04:26 200 mls/hr ONETIME ONE Administration Lorazepam 0.5 mg 05/23/17 03:28 05/23/17 03:36 Ativan IVPUSH 05/23/17 03:29 0.5 mg ONETIME ONE Administration Methylprednisolone Sodium Succinate Confirm 05/23/17 01:08 05/23/17 01:53 Solu-Medrol Administered 05/23/17 01:09 Not Given Dose 125 mg .ROUTE .STK-MED ONE Methylprednisolone Sodium Succinate 125 mg 05/23/17 01:13 05/23/17 01:04 Solu-Medrol IVPUSH 05/23/17 01:14 125 mg ONETIME ONE Administration Terbutaline Sulfate Confirm 05/23/17 01:05 05/23/17 01:53 Brethine Administered 05/23/17 01:06 Not Given Dose 1 mg .ROUTE .STK-MED ONE Terbutaline Sulfate 0.25 mg 05/23/17 01:13 05/23/17 01:10 Brethine SUBCUT 05/23/17 01:14 0.25 mg ONETIME ONE Administration - Radiology Interpretation Free Text/Narrative:: Chest x-ray shows obvious COPD and I do not appreciate any marked infiltrates at this time. - Re-Assessments/Exams Free Text/Narrative Re-Assessment/Exam: 05/23/17 03:34 I spoke to the patient and the family regarding his need to be in the hospital and we do not have any beds and ICU bed for him. We will have to send him down the road to [place] and they have chosen [place]. 05/23/17 03:[address] Hill at [facility] and she agrees to accept the patient in transport for further evaluation and treatment. 05/23/17 04:02 Chest x-ray was pushed over to [place] and [place]. 05/23/17 04:33 The patient has been stable on the BiPAP and feeling much better and breathing much better and his lung sounds still have some crackles and wheezes but they are moving air well Departure - Departure Time of Disposition: 04:34 Disposition: DC/Tfer to [facility] 02 Clinical Impression: Acute exacerbation of chronic obstructive pulmonary disease (COPD), Acute respiratory distress, Hypoxemia Upper respiratory infection Qualifiers: URI type: unspecified URI Qualified Code(s): J06.9 - Acute upper respiratory infection, unspecified Acute bronchitis Qualifiers: Bronchitis organism: unspecified organism Qualified Code(s): J20.9 - Acute bronchitis, unspecified - Discharge Information Referrals: PCP,None [Primary Care Provider] - Forms: ED Department Discharge Additional Instructions: I spoke to Dr. Hill and she agrees to accept the patient in transport to [facility] ED Communication - ED Communication Date/Time Date: 05/23/17 Time Called: 03:40 - Discussed Case With (1) Discussed Case With (1): Admitting Provider Person/s Notified (1): Dr. Hill (She accepts for further evaluation and treatment) - My Orders Last 24 Hours: My Active Orders 05/23/17 01:00 BIPAP [RT BiPAP/CPAP] [RC] ASDIRECTED 05/23/17 01:07 CXR [Chest 1V Frontal] [CR] Stat 05/23/17 01:08 Blood Culture x2 Reflex Set [OM.PC] Stat 05/23/17 01:30 CULTURE BLOOD [BC] Stat 05/23/17 01:38 CULTURE BLOOD [BC] Stat 05/23/17 01:51 RT Aerosol Therapy [RC] ASDIRECTED 05/23/17 01:52 RT Aerosol Therapy [RC] ASDIRECTED RT Aerosol Therapy [RC] ASDIRECTED 05/23/17 03:36 Azithromycin [Zithromax] 500 mg Sodium Chloride 0.9% [Normal Saline] 250 ml IV ONETIME - Assessment/Plan Last 24 Hours: My Active Orders 05/23/17 01:00 BIPAP [RT BiPAP/CPAP] [RC] ASDIRECTED 05/23/17 01:07 CXR [Chest 1V Frontal] [CR] Stat 05/23/17 01:08 Blood Culture x2 Reflex Set [OM.PC] Stat 05/23/17 01:30 CULTURE BLOOD [BC] Stat 05/23/17 01:38 CULTURE BLOOD [BC] Stat 05/23/17 01:51 RT Aerosol Therapy [RC] ASDIRECTED 05/23/17 01:52 RT Aerosol Therapy [RC] ASDIRECTED RT Aerosol Therapy [RC] ASDIRECTED 05/23/17 03:36 Azithromycin [Zithromax] 500 mg Sodium Chloride 0.9% [Normal Saline] 250 ml IV ONETIME
[2017-05-23 01:28] VITALS: BP 142/114
[2017-05-23] MEDS ORDERED: Albuterol/Ipratropium 3.0-0.5 MG/3 ML Neb Soln NEB ONE ×3 (01:51→01:52)
[2017-05-23] MEDS ORDERED: LORazepam 2 MG/ML SDV IVPUSH ONE (03:28)
[2017-05-23] MEDS ORDERED: cefTRIAXone 1 GM Vial IM ONE (03:36)
[2017-05-23] MEDS ORDERED: Azithromycin 500 MG in Sodium Chloride 0.9% 250 ML IV ONE (03:36)
[2017-05-23] MEDS ORDERED: cefTRIAXone 1 GM in Sodium Chloride 0.9% 100 ML IV ONE (03:57)
--- NOTE | 2017-05-25 08:01 | CR ---
Chest: Frontal view of the chest was obtained. Comparison: Prior chest x-ray of 10/04/16. Heart size is normal. Tortuous thoracic aorta is incidentally noted. Lungs are hyperinflated compatible with emphysematous change. Lungs are clear with nothing acute being seen. Impression: 1. Emphysematous change. Nothing acute is definitely appreciated. Diagnostic code #2
== END 2017-05-23 04:57 ==
LOC: JD.ED 00:53
DX: J44.1 Chronic obstructive pulmonary disease with (acute) exacerbation (principal); J20.9 Acute bronchitis, unspecified; J06.9 Acute upper respiratory infection, unspecified; R09.02 Hypoxemia; Z87.891 Personal history of nicotine dependence; Z79.82 Long term (current) use of aspirin; Z79.899 Other long term (current) drug therapy
CPT/HCPCS: 36415; 71045; 80053; 83605; 85025; 87040; 94640; 94660; 96365; 96372; 96375; 99285; J0456; J0696; J2060; J2930; J3105; J7030; J7050